=== PATIENT | female | born 1950 | race Caucasian/White ===

== ENCOUNTER → 2019-12-02 | Outpatient (CLI) | payer MEDICARE | END | disposition home or self-care (01) | LOC: PLD 08:27 → LAB SHORT 08:27 | DX: C44.311 Basal cell carcinoma of skin of nose (principal) | CPT/HCPCS: 88305 ==

== ENCOUNTER → 2022-04-16 | Outpatient (CLI) | payer MEDICARE | END | disposition home or self-care (01) | LOC: PLD 07:33 → LAB SHORT 07:33 | DX: D48.5 Neoplasm of uncertain behavior of skin (principal) | CPT/HCPCS: 88305 ==

== ENCOUNTER 2023-09-26 08:11 | Day surgery (SDC) | payer MEDICARE ==
[~2023-09-26] VITALS: Ht 167.6 cm; Wt 71.6 kg
[~2023-09-26 08:11] MED LIST: Lactated Ringer's 1,000 ML IV ONE; propofoL 40 ML IV ONE
[2023-09-26] MEDS ORDERED: AMLODIPINE-OLM1 EAC4 (08:43)
[2023-09-26] MEDS ORDERED: AVALIDE 300-121 EACH (08:44)
[2023-09-26] MEDS ORDERED: METO25ER (08:45)
[2023-09-26] MEDS ORDERED: ZOCOR20 MG (08:45)
[2023-09-26] MEDS ORDERED: IBUP200 (08:46)
[2023-09-26] MEDS ORDERED: Lactated Ringer's 1,000 ML IV ONE (09:42)
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
[2023-09-26] MEDS ORDERED: propofoL 20 ML IV ONE (10:33)
[2023-09-26] MEDS ORDERED: NS 500 ML IV ONE (10:35)
[2023-09-26 11:24] VITALS: BP 151/78
== END 2023-09-26 11:15 | disposition home or self-care (01) ==
LOC: ORSCSDS 08:11
PROVIDERS: Surgery
PROC: 0DBK8ZX Excision of Ascending Colon, Via Natural or Artificial Opening Endoscopic, Diagnostic (ICD-10-PCS; principal; 2023-09-26 09:30)
DX: Z12.11 Encounter for screening for malignant neoplasm of colon (principal); R19.5 Other fecal abnormalities; D12.2 Benign neoplasm of ascending colon; K57.30 Diverticulosis of large intestine without perforation or abscess without bleeding; I10 Essential (primary) hypertension; Z79.899 Other long term (current) drug therapy; Z79.82 Long term (current) use of aspirin
CPT/HCPCS: 88305; J2704; J7120